=== PATIENT | female | born 1980 | race Caucasian/White ===

== ENCOUNTER → 2017-01-09 | Outpatient (CLI) | payer BC ==
[~2017-01-09] VITALS: Ht 167.6 cm; Wt 79.5 kg
[~2017-01-09] MED LIST: CLARITIN 1010 MG/TAB PO; CYMBALTA 20MG20 MG PO; MOTRIN 600600 MG/TAB PO; NORCO 325 MG-51 TAB PO; PERCOCET 325 MG1 TA2 PO; PLAQUENIL 200M200 MG PO; PRILOSEC 20MG20 MG PO; PROBIOTIC-MAJOR PO; SENOKOT S 50 MG1 TAB PO
[2017-01-09 07:02] VITALS: BP 122/54; PULSE 86
[2017-01-09 08:41] VITALS: BP 102/64; PULSE 71
[2017-01-09 08:55] VITALS: BP 109/69; PULSE 78
== END ==
LOC: COL.RAD 06:39
DX: M53.3 Sacrococcygeal disorders, not elsewhere classified (principal); Q76.49 Other congenital malformations of spine, not associated with scoliosis
CPT/HCPCS: G9654; J2704

== ENCOUNTER → 2017-03-20 | Outpatient (REF) | LOC: ZLAB.WCH 14:06 | DX: Z01.89 Encounter for other specified special examinations (principal) ==